=== PATIENT | female | born 1990 | race Caucasian/White ===

== ENCOUNTER 2017-02-21 16:50 | Emergency (ER) | payer OTHER ==
[2017-02-21 17:11] VITALS: BP 121/89
[2017-02-21] MEDS ORDERED: cefTRIAXone VIAL(*) 250 MG VIAL IM ONE (17:22)
[2017-02-21] MEDS ORDERED: Azithromycin TAB* 250 MG PO ONE (17:23)
[2017-02-21] MEDS ORDERED: Lidocaine 1% MPF* 2 ML VIAL ONE (17:28)
--- NOTE | 2017-02-21 17:45 | UC ---
Complaint Female HPI - HPI Summary HPI Summary: Patient presents to the with CC of vaginal burning and itching. She also states she had unprotected sex 2 days ago when symptoms began. She has never had a STD or a yeast infection before. Unknown if she has vaginal discharge, she states she is on her cycle and cannot tell if she has discharge or from her cycle. Prominent symptoms include inflammation and burning around the vaginal area without abdominal pain, back pain. - History Of Current Complaint Chief Complaint: UCGU Stated Complaint: PERSONAL Time Seen by Provider: 02/21/17 17:11 Hx Obtained From: Patient Hx Last Menstrual Period: 02/18/17 ?: No Onset/Duration: Sudden Onset Timing: Constant Severity Initially: Mild Severity Currently: Mild Pain Intensity: 2 Pain Scale Used: 0-10 Numeric Aggravating Factor(s): [place] Alleviating Factor(s): Nothing Associated Signs And Symptoms: Positive: Vaginal Discharge - Risk Factors Ectopic Risk Factor: Negative Ovarian Torsion Risk Factor: Reproductive Age - Allergies/Home Medications Allergies/Adverse Reactions: Allergies Allergy/AdvReac Type Severity Reaction Status Date / Time No Known Allergies Allergy Verified 02/21/17 17:04 PMH/Surg Hx/FS Hx/Imm Hx Previously Healthy: Yes - Surgical History Surgical History: Yes Surgery Procedure, Year, and Place: Inguinal hernia repair as infant, [place] - Family History Known Family History: Negative: Cardiac Disease, Hypertension, Diabetes - Social History Occupation: Employed Part-time Lives: With Family Alcohol Use: Rare Substance Use Type: None Smoking Status (MU): Never Smoked Tobacco Review of Systems Constitutional: Negative Skin: Negative Respiratory: Negative Cardiovascular: Negative Gastrointestinal: Negative Genitourinary: Vaginal/Penile Burning, Vaginal/Penile Itching Motor: Negative Musculoskeletal: Negative Neurological: Negative Is Patient Immunocompromised?: No All Other Systems Reviewed And Are Negative: Yes Physical Exam Triage Information Reviewed: Yes Appearance: Well-Appearing, Well-Nourished Vital Signs: Initial Vital Signs Temp 99.2 F 02/21/17 17:05 Pulse 91 02/21/17 17:05 Resp 16 02/21/17 17:05 BP 121/89 02/21/17 17:05 Pulse Ox 99 02/21/17 17:05 Vital Signs Reviewed: Yes Eye Exam: Normal Eyes: Positive: Conjunctiva Clear Neck exam: Normal Neck: Positive: Supple, No Lymphadenopathy Respiratory Exam: Normal Respiratory: Positive: Chest non-tender, Lungs clear Cardiovascular Exam: Normal Cardiovascular: Positive: RRR Musculoskeletal Exam: Normal Musculoskeletal: Positive: Strength Intact Neurological Exam: Normal Neurological: Positive: Alert Psychological: Positive: Normal Response To Family, Age Appropriate Behavior Skin Exam: Normal Complaint Female Dx - Course Course Of Treatment: Patient declines pelvic physical examination. She would like to be treated for Chlamydia/Gonorrhea and given treatment for her vaginal discharge which is likely yeast. She has been having unprotected sex with a new partner with possible infection. She is given risks and benefits of medications and discussed protected sex, and without swabbing the area for testing, will be unsure if she is positive for std's. She understands these risks and requesting medications. - Differential Dx/Diagnosis Differential Diagnosis/HQI/PQRI: Pelvic Inflammatory Disease, Sexually Transmitted Disease, Urinary Tract Infection Provider Diagnoses: STD treatment/ yeast infection Discharge - Discharge Plan Condition: Stable Disposition: HOME Prescriptions: Fluconazole 150 MG (NF) [Diflucan 150 mg (NF)] 150 mg PO ONCE #2 tab Patient Education Materials: Sexually Transmitted Diseases (ED), Safe Sex (ED) , Vulvovaginal Candidiasis (ED) Referrals: Beth Beasley MD [Primary Care Provider] - Additional Instructions: Please follow up with PCP as needed Must tell all your partners to be tested As discussed, without testing - we do not know if you have STI's and are treating based on your recent unprotected sex with a possible exposed individual. You are given Fluconazole for the yeast infection. If symptoms do not improve or become worse - return to the immediately.
--- NOTE | 2017-02-23 07:39 | UC ---
Progress - Progress Note Progress Note: UCX (-). IF WORSE F/U PCP.
== END 2017-02-21 17:59 | disposition home or self-care (01) ==
LOC: UCCORT 16:50
DX: B37.3 Candidiasis of vulva and vagina (principal); Z72.51 High risk heterosexual behavior
CPT/HCPCS: 36415; 81003; 86703; 87086; 96372; 99212; A9270-GY; G0463; J0696

== ENCOUNTER 2017-06-13 16:17 | Emergency (ER) | payer OTHER ==
[2017-06-13 18:04] VITALS: BP 125/72
--- NOTE | 2017-06-13 18:37 | ED ---
GI/ HPI - HPI Summary HPI Summary: 27 yr old female with two days of dysuria, frequency of urination, and some blood two days ago. She states she has had prior uti and this feels like one. Denies fever, chills, back pain. No NV. No other complaints. - History of Current Complaint Chief Complaint: UCGU Time Seen by Provider: 06/13/17 18:18 Stated Complaint: URINARY Hx Last Menstrual Period: 06/04/17 Pain Intensity: 0 - Allergy/Home Medications Allergies/Adverse Reactions: Allergies Allergy/AdvReac Type Severity Reaction Status Date / Time No Known Allergies Allergy Verified 06/13/17 18:04 PMH/Surg Hx/FS Hx/Imm Hx - Surgical History Surgery Procedure, Year, and Place: Inguinal hernia repair as , [place] Infectious Disease History: No Infectious Disease History: Denies: Hx Clostridium Difficile, Hx Hepatitis, Hx Human Immunodeficiency Virus (HIV), Hx of Known/Suspected MRSA, Hx Shingles, Hx Tuberculosis, Hx Known/ Suspected VRE, Hx Known/Suspected VRSA, History Other Infectious Disease, Traveled Outside the in Last 30 Days - Family History Known Family History: Positive: None Negative: Cardiac Disease, Hypertension, Diabetes - Social History Occupation: Employed Full-time Alcohol Use: None Substance Use Type: Reports: None Smoking Status (MU): Never Smoked Tobacco Review of Systems Constitutional: Negative Positive: dysuria, frequency All Other Systems Reviewed And Are Negative: Yes Physical Exam Triage Information Reviewed: Yes Vital Signs On Initial Exam: Initial Vitals Temp Pulse Resp BP Pulse Ox 98.7 F 75 15 125/72 99 06/13/17 17:59 06/13/17 17:59 06/13/17 17:59 06/13/17 17:59 06/13/17 17:59 Vital Signs Reviewed: Yes Appearance: Positive: Well-Appearing, No Pain Distress Skin: Positive: Warm Eyes: Positive: EOMI Neck: Positive: Nontender Respiratory/Lung Sounds: Positive: Clear to Auscultation, Breath Sounds Present Cardiovascular: Positive: RRR. Negative: Murmur Abdomen Description: Positive: Nontender. Negative: CVA Tenderness (R), CVA Tenderness (L) Musculoskeletal: Positive: Strength/ROM Intact Neurological: Positive: Sensory/Motor Intact, Alert, Oriented to Person Place, Time, CN Intact II-III Psychiatric: Positive: Normal - [place] Coma Scale Best Eye Response: 4 - Spontaneous Best Motor Response: 6 - Obeys Commands Best Verbal Response: 5 - Oriented Coma Scale Total: 15 Diagnostics - Vital Signs Vital Signs Temp Pulse Resp BP Pulse Ox 06/13/17 17:59 98.7 F 75 15 125/72 99 - Laboratory Lab Results: Lab Results 06/13/17 Range/Units 18:05 POC Ur Test Negative (Negative) Lab Statement: Any lab studies that have been ordered have been reviewed, and results considered in the medical decision making process. GIGU Course/Dx - Course Course Of Treatment: 27 yr old with UTI. Rx with bactrim. Culture sent. - Diagnoses Provider Diagnoses: UTI (urinary tract infection) Discharge - Discharge Plan Condition: Good Disposition: HOME Prescriptions: Sulfamethox/Trimethoprim DS* [Bactrim DS 800/160 TAB*] 1 tab PO BID #10 tab Patient Education Materials: Urinary Tract Infection in Women (DC) Referrals: Beth Beasley MD [Primary Care Provider] - 2 Days
== END 2017-06-13 18:36 | disposition home or self-care (01) ==
LOC: UCCORT 16:17
DX: N39.0 Urinary tract infection, site not specified (principal); R31.9 Hematuria, unspecified; Z87.440 Personal history of urinary (tract) infections; Z32.02 Encounter for pregnancy test, result negative
CPT/HCPCS: 84702; 87086; 99211; G0463

== ENCOUNTER 2017-08-16 07:32 | Emergency (ER) | payer OTHER ==
--- NOTE | 2017-08-16 07:45 | UC ---
Throat Pain/Nasal Hunter HPI - HPI Summary HPI Summary: 27 year old with sinus pressure. Fever for 2 days. mild cough. no CP . no sick contacts. no wheezing. - History of Current Complaint Stated Complaint: CHILLS, SINUSES, HEADACHE Time Seen by Provider: 08/16/17 07:43 Hx Obtained From: Patient Hx Last Menstrual Period: 06/04/17 Onset/Duration: Gradual Onset Cough: Nonproductive - Allergies/Home Medications Allergies/Adverse Reactions: Allergies Allergy/AdvReac Type Severity Reaction Status Date / Time No Known Allergies Allergy Verified 08/16/17 07:42 Home Medications: Home Medications Ibuprofen TAB* [Motrin TAB* 800 MG] 800 mg PO Q24H PRN 08/16/17 [History Confirmed 08/16/17] PMH/Surg Hx/FS Hx/Imm Hx Previously Healthy: Yes - Surgical History Surgical History: Yes Surgery Procedure, Year, and Place: Inguinal hernia repair as , [place] - Family History Known Family History: Positive: None Negative: Cardiac Disease, Hypertension, Diabetes - Social History Occupation: Employed Full-time Lives: With Family Alcohol Use: None Substance Use Type: None Smoking Status (MU): Never Smoked Tobacco Review of Systems Constitutional: Fatigue ENT: Ear Ache, Nasal Discharge, Sinus Congestion, Sinus Pain/Tenderness Respiratory: Cough Is Patient Immunocompromised?: No All Other Systems Reviewed And Are Negative: Yes Physical Exam Triage Information Reviewed: Yes Appearance: Well-Appearing, No Pain Distress, Well-Nourished Vital Signs Reviewed: Yes Eye Exam: Normal ENT Exam: Normal ENT: Positive: Normal ENT inspection, Nasal congestion, Nasal drainage - clear, Sinus tenderness - mild frontal Neck exam: Normal Neck: Positive: 1 Respiratory Exam: Normal Cardiovascular Exam: Normal Musculoskeletal Exam: Normal Neurological Exam: Normal Psychological Exam: Normal Skin Exam: Normal Throat Pain/Nasal Course/Dx - Course Course Of Treatment: Appears viral - supportive care-- if Sx worsen then RTO , if sx worsen in 48 hours can call office here I will be here and can offer augmentin - Differential Dx/Diagnosis Differential Diagnosis/HQI/PQRI: Otitis Media, Peritonsillar Abscess, Pharyngitis, Sinusitis, URI Provider Diagnoses: URI Viral Discharge - Sign-Out/Discharge Documenting (check all that apply): Discharge - Discharge Plan Condition: Good Disposition: HOME Prescriptions: Benzonatate CAP* [Tessalon 100 MG CAP*] 100 mg PO TID PRN #20 cap PRN Reason: Cough Fluticasone NASAL SPRAY 50MCG* [Flonase NASAL SPRAY 50MCG*] 2 spray BOTH NARES DAILY #1 btl Loratadine 10 mg PO DAILY #14 tablet Patient Education Materials: Upper Respiratory Infection (DC) Referrals: Beth Beasley MD [Primary Care Provider] - 4 Days - Billing Disposition and Condition Condition: GOOD Disposition: HOME
[2017-08-16 07:50] VITALS: BP 136/82
== END 2017-08-16 08:10 | disposition home or self-care (01) ==
LOC: UCCORT 07:32
DX: J06.9 Acute upper respiratory infection, unspecified (principal)
CPT/HCPCS: 99212; G0463

== ENCOUNTER 2017-12-15 09:42 | Emergency (ER) | payer OTHER ==
[2017-12-15 10:43] VITALS: BP 118/86
--- NOTE | 2017-12-15 11:35 | UC ---
Complaint Female HPI - HPI Summary HPI Summary: here requesting treatment for suspected yeast vaginitis, which she has had in the past and has responded to fluconazole. Reviewed past visits--has had tx for elizabeth, presumptive tx for Chlamydia, past UTI but culture negative. Declines pelvic check today. Does not have dysuria. Sex is mildly uncomfortable with initial penetration, not deep. Declines STI screen. - History Of Current Complaint Chief Complaint: UCGeneralIllness Stated Complaint: PERSONAL Time Seen by Provider: 12/15/17 11:22 Hx Obtained From: Patient Hx Last Menstrual Period: 11/27/17 Onset/Duration: Gradual Onset, Lasting Days - 2 Timing: Constant Severity Initially: Mild Severity Currently: Mild Pain Intensity: 2 Character: Not Applicable Aggravating Factor(s): [place] Alleviating Factor(s): Nothing Associated Signs And Symptoms: Positive: Negative - Allergies/Home Medications Allergies/Adverse Reactions: Allergies Allergy/AdvReac Type Severity Reaction Status Date / Time No Known Allergies Allergy Verified 08/16/17 07:42 PMH/Surg Hx/FS Hx/Imm Hx Previously Healthy: Yes - Surgical History Surgical History: Yes Surgery Procedure, Year, and Place: Inguinal hernia repair as , [place] - Family History Known Family History: Positive: None - parents living and healthy Negative: Cardiac Disease, Hypertension, Diabetes - Social History Occupation: Employed Full-time Lives: With Family Alcohol Use: None Substance Use Type: None Substance Use Comment - Amount & Last Used: one week Smoking Status (MU): Never Smoked Tobacco Review of Systems Constitutional: Negative Skin: Negative Eyes: Negative ENT: Negative Respiratory: Negative Cardiovascular: Negative Gastrointestinal: Negative Genitourinary: Vaginal/Penile Itching, Vaginal/Penile Discharge Motor: Negative Neurovascular: Negative Musculoskeletal: Negative Neurological: Negative Psychological: Negative All Other Systems Reviewed And Are Negative: Yes Physical Exam Triage Information Reviewed: Yes Appearance: Well-Appearing Vital Signs: Initial Vital Signs Temp 99.1 F 12/15/17 10:37 Pulse 64 12/15/17 10:37 Resp 15 12/15/17 10:37 BP 118/86 12/15/17 10:37 Pulse Ox 99 12/15/17 10:37 Respiratory: Positive: Lungs clear, Normal breath sounds Cardiovascular: Positive: RRR, No Murmur Abdomen Description: Positive: Nontender, No Organomegaly, Soft Pelvic Exam: Positive: Other - exam declined. Complaint Female Dx - Course Course Of Treatment: fluconazole for suspected yeast. - Differential Dx/Diagnosis Differential Diagnosis/HQI/PQRI: Urinary Tract Infection, Other - vaginitis Provider Diagnoses: vaginitis Discharge - Sign-Out/Discharge Documenting (check all that apply): Patient Departure - Discharge Plan Condition: Stable Disposition: HOME Prescriptions: Fluconazole 150 MG (NF) [Diflucan 150 mg (NF)] 150 mg PO ONCE #1 tab Patient Education Materials: Vaginitis (ED) Referrals: Beth Beasley MD [Primary Care Provider] - Additional Instructions: use single dose fluconazole for treatment; if you do not respond to the treatment, please return for evaluation and testing. - Billing Disposition and Condition Condition: STABLE Disposition: Home
== END 2017-12-15 11:47 | disposition home or self-care (01) ==
LOC: UCCORT 09:42
DX: N76.0 Acute vaginitis (principal)
CPT/HCPCS: 99212; G0463

== ENCOUNTER 2018-05-23 08:48 | Emergency (ER) | payer OTHER ==
--- NOTE | 2018-05-23 10:02 | UC ---
Throat Pain/Nasal Rob HPI - HPI Summary HPI Summary: 1 week of cough and nasal rob. NO sick contacts. otc meds have tried/failed. did get flu shot this year. - History of Current Complaint Chief Complaint: UCGeneralIllness Stated Complaint: SOUGH,SORE THROAT Time Seen by Provider: 05/23/18 09:56 Hx Obtained From: Patient Hx Last Menstrual Period: 11/27/17 ?: No - Allergies/Home Medications Allergies/Adverse Reactions: Allergies Allergy/AdvReac Type Severity Reaction Status Date / Time No Known Allergies Allergy Verified 05/23/18 10:01 PMH/Surg Hx/FS Hx/Imm Hx Previously Healthy: Yes - Surgical History Surgical History: Yes Surgery Procedure, Year, and Place: Inguinal hernia repair as infant, [place] - Family History Known Family History: Positive: None - parents living and healthy Negative: Cardiac Disease, Hypertension, Diabetes - Social History Alcohol Use: None Substance Use Type: None Substance Use Comment - Amount & Last Used: one week Smoking Status (MU): Never Smoked Tobacco Review of Systems All Other Systems Reviewed And Are Negative: Yes Constitutional: Positive: Negative. Negative: Fever, Chills Skin: Negative: Rash ENT: Positive: Nasal Discharge, Sinus Congestion. Negative: Sore Throat Respiratory: Positive: Cough. Negative: Shortness Of Breath Cardiovascular: Negative: Chest Pain Gastrointestinal: Negative: Vomiting, Diarrhea Physical Exam Triage Information Reviewed: Yes Appearance: Well-Appearing Vital Signs Reviewed: Yes Eyes: Positive: Conjunctiva Clear ENT: Positive: Normal ENT inspection Respiratory Exam: Normal Cardiovascular Exam: Normal Neurological: Positive: Alert Skin: Negative: Rashes Throat Pain/Nasal Course/Dx - Course Assessment/Plan: Viral nasal congestion,cough. comfort measures suggested. vitals good, exam unremarkable. - Differential Dx/Diagnosis Differential Diagnosis/HQI/PQRI: Laryngitis, Tonsillitis, URI Provider Diagnosis: URI (upper respiratory infection) Discharge - Sign-Out/Discharge Documenting (check all that apply): Patient Departure All imaging exams completed and their final reports reviewed: No Studies - Discharge Plan Condition: Good Disposition: HOME Prescriptions: Benzonatate CAP* [Tessalon 100 MG CAP*] 100 mg PO TID PRN #15 cap PRN Reason: Cough Patient Education Materials: Upper Respiratory Infection (ED) Forms: *Work Release Referrals: No Primary Care Phys,NOPCP [Primary Care Provider] - Additional Instructions: Please rest and increase your fluids. If not improving please follow up with your pcp. - Billing Disposition and Condition Condition: GOOD Disposition: Home
[2018-05-23 10:09] VITALS: BP 127/89
== END 2018-05-23 10:22 | disposition home or self-care (01) ==
LOC: UCCORT 08:48
DX: J06.9 Acute upper respiratory infection, unspecified (principal)
CPT/HCPCS: 99212; G0463

== ENCOUNTER 2018-06-20 07:02 | Emergency (ER) | payer OTHER ==
[2018-06-20 07:17] VITALS: BP 126/85
--- NOTE | 2018-06-20 07:36 | ED ---
Throat Pain/Nasal Congestion - HPI Summary HPI Summary: 28 yr old female with the complaint of frontal sinus pressure, worse when she coughs, fever, chills, and yellow nasal discharge. She has had the sinus pressure for four days and the cough. She has had nasal discharge the past week or so. - History of Current Complaint Chief Complaint: UCRespiratory Time Seen by Provider: 06/20/18 07:26 - Allergies/Home Medications Allergies/Adverse Reactions: Allergies Allergy/AdvReac Type Severity Reaction Status Date / Time No Known Allergies Allergy Verified 06/20/18 07:10 Home Medications: Home Medications Dm/P-Ephed/Acetaminoph/Doxylam [Dorita-[place] Plus Cold+Flu Pkt] 1 each PO BID PRN 06/20/18 [History Confirmed 06/20/18] Ibuprofen TAB* [Advil TAB*] 1,200 mg PO Q6H PRN 06/20/18 [History Confirmed ] PMH/Surg Hx/FS Hx/Imm Hx Previously Healthy: Yes - Surgical History Surgery Procedure, Year, and Place: Inguinal hernia repair as , [place] Infectious Disease History: No Infectious Disease History: Denies: Hx Clostridium Difficile, Hx Hepatitis, Hx Human Immunodeficiency Virus (HIV), Hx of Known/Suspected MRSA, Hx Shingles, Hx Tuberculosis, Hx Known/ Suspected VRE, Hx Known/Suspected VRSA, History Other Infectious Disease, Traveled Outside the [place] in Last 30 Days - Family History Known Family History: Positive: None - parents living and healthy Negative: Cardiac Disease, Hypertension, Diabetes - Social History Alcohol Use: None Substance Use Type: Reports: None Substance Use Comment - Amount & Last Used: one week Smoking Status (MU): Never Smoked Tobacco Review of Systems Positive: Fever, Chills Positive: Nasal Discharge, Other - sinus pain Positive: Cough All Other Systems Reviewed And Are Negative: Yes Physical Exam Triage Information Reviewed: Yes Vital Signs On Initial Exam: Initial Vitals Temp Pulse Resp BP Pulse Ox 99.8 F 94 16 126/85 99 06/20/18 07:13 06/20/18 07:13 06/20/18 07:13 06/20/18 07:13 06/20/18 07:13 Vital Signs Reviewed: Yes Appearance: Positive: Well-Appearing, No Pain Distress Skin: Positive: Warm, Skin Color Reflects Adequate Perfusion Head/Face: Positive: Normal Head/Face Inspection Eyes: Positive: EOMI ENT: Positive: Pharynx normal, Nasal congestion, TMs normal, Sinus tenderness Neck: Positive: Nontender Respiratory/Lung Sounds: Positive: Clear to Auscultation, Breath Sounds Present Cardiovascular: Positive: RRR. Negative: Murmur Abdomen Description: Positive: Nontender. Negative: Distended Musculoskeletal: Positive: Strength/ROM Intact Neurological: Positive: Sensory/Motor Intact, Alert, Oriented to Person Place, Time, CN Intact II-III Psychiatric: Positive: Normal - [place] Coma Scale Best Eye Response: 4 - Spontaneous Best Motor Response: 6 - Obeys Commands Best Verbal Response: 5 - Oriented Coma Scale Total: 15 Diagnostics - Vital Signs Vital Signs Temp Pulse Resp BP Pulse Ox 06/20/18 07:13 99.8 F 94 16 126/85 99 - Laboratory Lab Statement: Any lab studies that have been ordered have been reviewed, and results considered in the medical decision making process. EENT Course/Dx - Course Course Of Treatment: 28 yr old with sinusitis. Rx Augmentin - Diagnoses Provider Diagnoses: Sinusitis Discharge - Sign-Out/Discharge Documenting (check all that apply): Patient Departure All imaging exams completed and their final reports reviewed: No Studies - Discharge Plan Condition: Good Disposition: HOME Prescriptions: Amoxicillin/Clavulanate TAB* [Augmentin TAB 875*] 875 mg PO BID #20 tab Patient Education Materials: Sinusitis (ED) Referrals: No Primary Care Phys,NOPCP [Primary Care Provider] - [facility] [Outside] - Billing Disposition and Condition Condition: GOOD Disposition: Home
== END 2018-06-20 07:36 | disposition home or self-care (01) ==
LOC: UCCORT 07:02
DX: J32.9 Chronic sinusitis, unspecified (principal)
CPT/HCPCS: 99212; G0463

== ENCOUNTER 2019-02-18 16:21 | Emergency (ER) | payer OTHER ==
[2019-02-18 16:46] VITALS: BP 117/74
--- NOTE | 2019-02-18 16:56 | UC ---
Complaint Female HPI - HPI Summary HPI Summary: Patient is a 29yo female presenting with vaginal itching and redness x2 days and states she has a yeast infection. She has had yeast infections in the past. Denies irregular discharge or foul odor. Denies possibility of STI and denies wanting a pelvic exam. Denies fever, chills, n/v/d. Denies pelvic or abdominal pain. Denies changes in urination. Denies taking anything otc for symptom relief. - History Of Current Complaint Chief Complaint: UCGeneralIllness Stated Complaint: PERSONAL Hx Obtained From: Patient Hx Last Menstrual Period: Jan 27- Onset/Duration: Gradual Onset, Lasting Days Timing: Constant Pain Intensity: 0 - Allergies/Home Medications Allergies/Adverse Reactions: Allergies Allergy/AdvReac Type Severity Reaction Status Date / Time No Known Allergies Allergy Verified 02/18/19 16:46 PMH/Surg Hx/FS Hx/Imm Hx Previously Healthy: Yes - Surgical History Surgical History: Yes Surgery Procedure, Year, and Place: Inguinal hernia repair as infant, [place] - Family History Known Family History: Positive: None - parents living and healthy Negative: Cardiac Disease, Hypertension, Diabetes - Social History Alcohol Use: Occasionally Substance Use Type: None Substance Use Comment - Amount & Last Used: one week Smoking Status (MU): Never Smoked Tobacco Review of Systems All Other Systems Reviewed And Are Negative: Yes Constitutional: Positive: Negative Skin: Positive: Other - vulvovaginal pruritus ENT: Positive: Negative Respiratory: Positive: Negative Cardiovascular: Positive: Negative Gastrointestinal: Positive: Negative Genitourinary: Positive: Negative Musculoskeletal: Positive: Negative Neurological: Positive: Negative Physical Exam Triage Information Reviewed: Yes Appearance: Well-Appearing, No Pain Distress, Well-Nourished Vital Signs: Initial Vital Signs Temp 99.1 F 02/18/19 16:41 Pulse 77 02/18/19 16:41 Resp 18 02/18/19 16:41 BP 117/74 02/18/19 16:41 Pulse Ox 99 02/18/19 16:41 Neck: Positive: Supple Respiratory: Positive: No respiratory distress Neurological: Positive: Alert Psychological: Positive: Age Appropriate Behavior Complaint Female Dx - Course Course Of Treatment: Patient denied pelvic exam and STI testing. Treated for yeast infection with diflucan. Told to follow up or return if symptoms persist or worsen. Patient voiced understanding and agreed to treatment plan. - Differential Dx/Diagnosis Provider Diagnosis: Vaginal yeast infection Discharge ED - Sign-Out/Discharge Documenting (check all that apply): Patient Departure All imaging exams completed and their final reports reviewed: No Studies - Discharge Plan Condition: Stable Disposition: HOME Prescriptions: Fluconazole 150 MG TAB* [Diflucan 150 MG TAB*] 150 mg PO SEE INSTRUCTIONS #2 tablet Patient Education Materials: Yeast Infection (ED) [facility]errals: [facility] [Outside] - If Needed Additional Instructions: As discussed, take Diflucan once today and once on Sunday for treatment of your yeast infection. Return or follow up with [facility] if symptoms persist or worsen. - Billing Disposition and Condition Condition: STABLE Disposition: Home - Attestation Statements Provider Attestation: I was available for consult. This patient was seen by the HILDA. The patient was not presented to, seen by, or examined by me. -Hannah
== END 2019-02-18 17:09 | disposition home or self-care (01) ==
LOC: UCCORT 16:21
DX: B37.3 Candidiasis of vulva and vagina (principal)
CPT/HCPCS: 99212; G0463